=== PATIENT | female | born 1990 | race American Indian/Alaskan Native ===

== ENCOUNTER 2016-10-04 18:34 | Emergency (ER) | payer MEDICAID ==
[2016-10-04 18:35] VITALS: BMI 34.6
[2016-10-04 18:59] VITALS: O2SAT 100
[2016-10-04] MEDS ORDERED: Sodium Chloride 0.9% 1,000 ML IV ONE (19:20)
[2016-10-04 19:26] LABS: BASO % 0.4 % (0.0-2.0); EOS # 0.1 K/uL (0.0-0.7); HEMATOCRIT 36.9 % (34.0-47.0); LYMPH # 2.1 K/uL (1.0-4.3); LYMPH % 27.9 % (20.0-40.0); MEAN CORPUSCULAR HEMOGLOBIN 25.7 pg (27.0-31.0); MEAN CORPUSCULAR HGB CONC 31.8 g/dL (33.0-37.0); MEAN PLATELET VOLUME 8.6 fL (7.2-11.7); MONO # 0.6 K/uL (0.0-0.8); MONO % 8.3 % (0.0-10.0); NRBC % 0.1 % (0.0-2.0); RED CELL DISTRIBUTION WIDTH 15.7 % (11.5-14.5); WHITE BLOOD COUNT 7.4 K/uL (4.8-10.8)
[2016-10-04] MEDS ORDERED: Sodium Chloride 0.9% 1,000 ML ONE (19:28)
[2016-10-04 19:29] LABS: MEAN CELL VOLUME 80.6 fL (81.0-99.0)
[2016-10-04 19:42] LABS: CHLORIDE 100 mmol/L (98-107); POTASSIUM 4.1 mmol/L (3.6-5.2); SODIUM 136 mmol/L (132-148)
[2016-10-04 19:44] LABS: ALB/GLOB RATIO 1.9 (1.0-2.1); AST/SGOT 31 U/L (14-36); BILIRUBIN,TOTAL 0.6 mg/dL (0.2-1.3); CARBON DIOXIDE 23 mmol/L (22-30); GFR AFRICAN-AMERICAN > 60; TOTAL PROTEIN 7.3 g/dL (6.3-8.3)
[2016-10-04 19:45] LABS: ALKALINE PHOSPHATASE 51 U/L (38-126); ALT/SGPT 19 U/L (9-52); BLOOD UREA NITROGEN 14 mg/dL (7-17); CALCIUM 8.9 mg/dl (8.6-10.4); GLUCOSE,RANDOM 85 mg/dL (65-105)
[2016-10-04 19:50] LABS: RBC URINE 1 /hpf (0-3); URINE BACTERIA RARE (<OCC); URINE BILIRUBIN NEGATIVE (NEGATIVE); URINE BLOOD NEGATIVE (NEGATIVE); URINE COLOR Yellow (YELLOW); URINE GLUCOSE (UA) NORMAL (Normal); URINE KETONE NEGATIVE (NEGATIVE); URINE LEUKOCYTE ESTERASE NEG Leu/uL (Negative); URINE PROTEIN NEGATIVE (NEGATIVE); URINE UROBILINOGEN NORMAL mg/dL (0.2-1.0); WBC URINE 7 /hpf (0-5)
[2016-10-04 20:16] LABS: THYROID STIMULATING HORMONE 0.33 mIU/L (0.46-4.68)
--- NOTE | 2016-10-04 20:49 | C.PDOC ---
History Of Present Illness The patient, a 26 y/o female, presents to the ED for evaluation after experiencing a syncopal episode earlier today. Patient states she was standing at work when she suddenly began feeling weakness and dizzines. Patient then slowly fell onto the ground. Patient states her syncopal episode was brief and she recovered quickly. Additionally, patient states she began feeling sick around 3 days ago. She reports chest pain, diffuse abdominal pain which then progressed to lower abdominal pain, and multiple episodes of loose stools. She also reports intermittent headaches. Patient notes she feels like her throat might be closing and has been having difficulty with swallowing. She denies fever, chills, head injury, shortness of breath, nausea, vomiting, extremity numbness/weakness. Time Seen by Provider: 10/04/16 19:05 Chief Complaint (Nursing): Chest Pain History Per: Patient History/Exam Limitations: no limitations Onset/Duration Of Symptoms: Hrs, Intermittent Episodes Current Symptoms Are (Timing): Still Present Location Of Pain/Discomfort: Diffuse Radiation Of Pain To:: None Quality Of Discomfort: "Pain" Associated Symptoms: Other (+loose stools ). 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 Constitutional: Negative for: Fever, Chills Cardiovascular: Positive for: Chest Pain Gastrointestinal: Positive for: Abdominal Pain. Negative for: Nausea, Vomiting Neurological: Positive for: Headache, Other (+syncope) Physical Exam - Physical Exam Appears: Non-toxic, No Acute Distress Skin: Normal Color, Warm, Dry Head: Atraumatic, Normacephalic Eye(s): bilateral: Normal Inspection, PERRL, EOMI Ear(s): Bilateral: Normal Nose: Normal, No Discharge Oral Mucosa: Moist Throat: Normal, No Erythema, No Exudate Neck: Normal ROM, Supple Chest: Symmetrical, No Deformity, No Tenderness Cardiovascular: Rhythm Regular, No Murmur Respiratory: Normal Breath Sounds, No Rales, No Rhonchi, No Wheezing Gastrointestinal/Abdominal: Soft, No Tenderness, No Guarding, No Rebound Back: Normal Inspection, No Vertebral Tenderness, No Paraspinal Tenderness Extremity: Normal ROM, Capillary Refill (less than 2 seconds ) Neurological/Psych: Oriented x3, Normal Speech, Normal Cognition Gait: Steady ED Course And Treatment - Laboratory Results Result Diagrams: 10/04/16 19:24 10/04/16 19:24 ECG: Interpreted By Me, Viewed By Me Interpretation Of ECG: Sinus Rhythm with Sinus Arrhythmia at rate 80bpm. Rate From EC O2 Sat by Pulse Oximetry: 100 (on RA) Pulse Ox Interpretation: Normal Medical Decision Making Medical Decision Making: Plan: * labs * CXR * EKG * Pepcid IV * Toradol IM * IV Fluids * reassess and disposition Progress: labs, CXR, EKG ordered and reviewed. Pt received Pepcid IV, Toradol IV, and IV Fluids. Labs unremarkable except slightly low TSH Results discussed with pt she is feeling better, Plan dc home symptomatic tx Disposition - Disposition Disposition: HOME/ ROUTINE Disposition Time: 20:46 Condition: GOOD Additional Instructions: folllow up with your doctor at [place] Return to the ED for any new or worsening symptoms Prescriptions: Famotidine [Pepcid] 1 tab PO BID #30 tab Loperamide [Imodium] 1 cap PO QID PRN #12 cap PRN Reason: Diarrhea Naproxen [Naprosyn] 1 tab PO BID PRN #25 tab PRN Reason: Pain Instructions: Chest Pain (ED), Acute Abdominal Pain (ED) Forms: Work Excuse - Clinical Impression Clinical Impression: Chest pain, Abdominal pain - Scribe Statement The provider has reviewed the documentation as recorded by the Scribe (Debbie Slater) Provider Attestation: All medical record entries made by the Scribe were at my direction and personally dictated by me. I have reviewed the chart and agree that the record accurately reflects my personal performance of the history, physical exam, medical decision making, and the department course for this patient. I have also personally directed, reviewed, and agree with the discharge instructions and disposition.
[2016-10-04 21:11] VITALS: BP 118/84; PULSE 70; RESP 20; TEMP 99
--- NOTE | 2016-10-05 08:16 | RAD ---
HISTORY: Abdominal pain COMPARISON: No prior. TECHNIQUE: Chest PA and lateral FINDINGS: LUNGS: No active pulmonary disease. Bibasilar breast and nipple shadows. PLEURA: No significant pleural effusion identified. No pneumothorax apparent. CARDIOVASCULAR: Normal. OSSEOUS STRUCTURES: No significant abnormalities. VISUALIZED UPPER ABDOMEN: Normal. OTHER FINDINGS: None. IMPRESSION: No active disease.
--- NOTE | 2016-10-08 11:55 | CARD ---
APPROVED REPORT EKG Measurement Heart [id number] <Conclusion> Normal sinus rhythm with sinus arrhythmia Normal ECG
== END 2016-10-04 21:10 | disposition home or self-care (01) ==
LOC: C.ER 18:34
DX: R07.9 Chest pain, unspecified (principal); R10.9 Unspecified abdominal pain
CPT/HCPCS: 71020; 80053; 81001; 83690; 84443; 84703; 85025; 96361; 96374; 96375; 99285; J1885; J7040

== ENCOUNTER 2016-10-31 19:39 | Emergency (ER) | payer SELFPAY ==
[2016-10-31 19:39] VITALS: BMI 34.6
--- NOTE | 2016-10-31 21:39 | C.PDOC ---
History Of Present Illness A 26 y/o F with a Hx of asthma, c/o body aches and headache since this morning and cough since yesterday. Pt took no medications for symptoms. Denies sore throat, fever, chills, nausea, vomiting, abdominal pain, ear pain, dizziness, or any other complaints. Time Seen by Provider: 10/31/16 20:35 Chief Complaint (Nursing): Cough, Cold, Congestion History Per: Patient History/Exam Limitations: no limitations Onset/Duration Of Symptoms: Hrs Current Symptoms Are (Timing): Still Present Location Of Pain: Diffuse Myalgias, Headache Sick Contacts (Context): None Associated Symptoms: Cough. denies: Fever, Chills, Sore Throat, Neck Pain Ear Symptoms: Bilateral: None Severity: Mild Recent travel outside of the [place]: No Additional History Per: Patient Past Medical History Reviewed: Historical Data, Nursing Documentation, Vital Signs Vital Signs: Last Vital Signs Temp 98.6 F 10/31/16 21:48 Pulse 78 10/31/16 21:48 Resp 18 10/31/16 21:48 BP 130/80 10/31/16 21:48 Pulse Ox 98 10/31/16 21:48 - Medical History PMH: Asthma, Migraine - [facility] Procedures MANUAL ASSIST DELIV NEC (11/14/14) MEDICAL INDUCTION LABOR (11/14/14) REPAIR OB LACERATION NEC (11/14/14) Family History: States: Unknown Family Hx - Social History Hx Tobacco Use: No Hx Alcohol Use: Yes Hx Substance Use: No - Immunization History Hx Tetanus Toxoid Vaccination: No Hx Influenza Vaccination: No Hx Pneumococcal Vaccination: No Review Of Systems Except As Marked, All Systems Reviewed And Found Negative. Constitutional: Positive for: Other (Body aches). Negative for: Fever, Chills ENT: Negative for: Ear Pain Respiratory: Positive for: Cough Gastrointestinal: Negative for: Nausea, Vomiting, Abdominal Pain Neurological: Positive for: Headache. Negative for: Dizziness Physical Exam - Physical Exam Appears: Non-toxic, No Acute Distress Skin: Warm, Dry Head: Atraumatic, Normacephalic Eye(s): bilateral: Normal Inspection Nose: Normal, No Discharge Oral Mucosa: Moist Throat: Normal, No Erythema, No Exudate Neck: Trachea Midline, No Paracervical Tenderness, Supple Cardiovascular: Rhythm Regular Respiratory: Normal Breath Sounds, No Accessory Muscle Use, No Rales, No Rhonchi , No Stridor, No Wheezing Gastrointestinal/Abdominal: Soft, No Tenderness Neurological/Psych: Oriented x3, Normal Speech, Normal Cognition ED Course And Treatment O2 Sat by Pulse Oximetry: 99 (RA) Pulse Ox Interpretation: Normal Progress Note: Impression: A 26 y/o F c/po body aches and headache since this morning and cough since yesterday. Plans: Motrin, Reassess. Pt is in no acute distress at this time and is improving with the symptoms. Pt was advised to follow up with her PMD if symptoms continues to persist. Disposition Counseled Patient/Family Regarding: Diagnosis, Need For Followup, Rx Given - Disposition Disposition: HOME/ ROUTINE Disposition Time: 21:35 Condition: STABLE Additional Instructions: Increase PO fluids Take meds as directed Please follow up with PMD Prescriptions: Benzonatate [Tessalon Perles] 100 mg PO TID #20 sgl Cetirizine HCl [Zyrtec] 10 mg PO DAILY #20 capsule Ibuprofen [Motrin] 600 mg PO Q6H #30 tab Instructions: Upper Respiratory Infection (ED) Forms: Work Excuse - Clinical Impression Clinical Impression: Upper respiratory infection - Scribe Statement The provider has reviewed the documentation as recorded by the Scribe Nacho grace All medical record entries made by the Scribe were at my direction and personally dictated by me. I have reviewed the chart and agree that the record accurately reflects my personal performance of the history, physical exam, medical decision making, and the department course for this patient. I have also personally directed, reviewed, and agree with the discharge instructions and disposition.
[2016-10-31 21:48] VITALS: BP 130/80; PULSE 78; RESP 18; TEMP 98.6
[2016-10-31 21:51] VITALS: O2SAT 99
== END 2016-10-31 21:56 | disposition home or self-care (01) ==
LOC: C.ER 19:39
DX: J06.9 Acute upper respiratory infection, unspecified (principal)

== ENCOUNTER 2016-11-15 15:11 | Emergency (ER) | payer OTHER ==
[2016-11-15 15:11] VITALS: BMI 34.6
[2016-11-15 15:15] VITALS: BP 132/85; PULSE 91; TEMP 98.6; O2SAT 100
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
[2016-11-15 16:53] VITALS: RESP 18
--- NOTE | 2016-11-15 17:15 | RAD ---
PROCEDURE: Left Hand Radiographs. Three views left hand with cone-down view of the left thumb performed HISTORY: injury COMPARISON: None. FINDINGS: BONES: Normal. No fracture. JOINTS: Small osteophyte formation seen arising from the dorsal aspect base of the distal phalanx 2nd finger. . SOFT TISSUES: Normal. OTHER FINDINGS: None. IMPRESSION: No evidence of acute displaced fracture nor dislocation. If symptoms persist or occult fracture suspected clinically recommend repeat radiographs in 5-10 days as most fractures should become radiographically evident in this timeframe. Mild degenerative changes DIP joint 2nd finger as above
== END 2016-11-15 17:16 | disposition home or self-care (01) ==
LOC: C.ER 15:11
DX: S60.222A Contusion of left hand, initial encounter (principal); Y04.0XXA Assault by unarmed brawl or fight, initial encounter

== ENCOUNTER 2017-07-10 20:48 | Emergency (ER) | payer BC ==
[2017-07-10 20:48] VITALS: BMI 34.6
[2017-07-10 21:04] VITALS: O2SAT 98
--- NOTE | 2017-07-10 21:45 | C.PDOC ---
History Of Present Illness 27 year old female presents to the ER with a complaint of epigastric and LUQ abdominal pain since this morning. Denies fever, nausea, vomiting, or other complaints. Time Seen by Provider: 07/10/17 21:41 Chief Complaint (Nursing): Abdominal Pain History Per: Patient History/Exam Limitations: no limitations Onset/Duration Of Symptoms: Hrs Current Symptoms Are (Timing): Still Present Location Of Pain/Discomfort: Epigastric, LUQ Radiation Of Pain To:: None Quality Of Discomfort: Unable To Describe Associated Symptoms: denies: Fever, Nausea, Vomiting Exacerbating Factors: None Alleviating Factors: None Recent travel outside of the [place]: No Abnormal Vaginal Bleeding: No Past Medical History Reviewed: Historical Data, Nursing Documentation, Vital Signs Vital Signs: Last Vital Signs Temp 98.2 F 07/10/17 21:02 Pulse 84 07/10/17 21:02 Resp 16 07/10/17 21:02 BP 128/85 07/10/17 21:02 Pulse Ox 98 07/10/17 22:00 - Medical History PMH: Asthma, Migraine - [facility] Procedures MANUAL ASSIST DELIV NEC (11/14/14) MEDICAL INDUCTION LABOR (11/14/14) REPAIR OB LACERATION NEC (11/14/14) Family History: States: Unknown Family Hx - Social History Hx Tobacco Use: No Hx Alcohol Use: Yes Hx Substance Use: No - Immunization History Hx Tetanus Toxoid Vaccination: No Hx Influenza Vaccination: No Hx Pneumococcal Vaccination: No Review Of Systems Constitutional: Negative for: Fever, Chills Cardiovascular: Negative for: Chest Pain, Palpitations Respiratory: Negative for: Cough, Shortness of Breath Gastrointestinal: Positive for: Abdominal Pain. Negative for: Nausea, Vomiting Physical Exam - Physical Exam Appears: Non-toxic Skin: Normal Color, Warm, Dry Head: Atraumatic, Normacephalic Eye(s): bilateral: Normal Inspection Oral Mucosa: Moist Chest: Symmetrical, No Tenderness Cardiovascular: Rhythm Regular Respiratory: Normal Breath Sounds, No Rales, No Rhonchi, No Wheezing Gastrointestinal/Abdominal: Soft, Tenderness (Epigastric, LUQ), No Guarding, No Rebound Neurological/Psych: Oriented x3, Normal Speech ED Course And Treatment - Laboratory Results Result Diagrams: 07/10/17 22:22 07/10/17 22:22 O2 Sat by Pulse Oximetry: 98 (Room air) Pulse Ox Interpretation: Normal Medical Decision Making Medical Decision Making: suspect gastritis pud r/o pancreatitis- bedside us neg for cholecystitis. Plan: * Blood work * Urinalysis * Protonix * Zofran * IV fluids * * 1100: pt reassessed symptoms improved. additioanl maalox ordered. pt offered further observeration in er until complete resolution. pt decliens asking for dc . adivse outpt fu and return precautions Disposition - Disposition Referrals: [facility] [Outside] [facility] [Outside] Rod Mora MD [Staff Provider] - Disposition: HOME/ ROUTINE Disposition Time: 23:10 Condition: STABLE Additional Instructions: please follow up with your doctor. return to er with worsening symptoms or concerns. please see specialist Prescriptions: Famotidine [Pepcid] 20 mg PO DAILY #20 tab Instructions: Acute Abdomen (Belly Pain), Adult (DC) Forms: [employer] (Greenlandic) - Clinical Impression Clinical Impression: Abdominal pain, Abdominal pain - Scribe Statement The provider has reviewed the documentation as recorded by the Scribe Alex Machado All medical record entries made by the Scribe were at my direction and personally dictated by me. I have reviewed the chart and agree that the record accurately reflects my personal performance of the history, physical exam, medical decision making, and the department course for this patient. I have also personally directed, reviewed, and agree with the discharge instructions and disposition.
[2017-07-10] MEDS ORDERED: Sodium Chloride 0.9% 1,000 ML IV ONE (21:54)
[2017-07-10] MEDS ORDERED: Sodium Chloride 0.9% 1,000 ML ONE (22:12)
[2017-07-10 22:25] LABS: BASO % 0.6 % (0.0-2.0); EOS # 0.2 K/uL (0.0-0.7); EOS % 2.7 % (0.0-4.0); HEMOGLOBIN 11.3 g/dL (11.0-16.0); LYMPH # 2.3 K/uL (1.0-4.3); LYMPH % 41.4 % (20.0-40.0); MEAN CELL VOLUME 80.9 fL (81.0-99.0); MEAN CORPUSCULAR HEMOGLOBIN 26.1 pg (27.0-31.0); MEAN CORPUSCULAR HGB CONC 32.3 g/dL (33.0-37.0); MEAN PLATELET VOLUME 8.5 fL (7.2-11.7); MONO # 0.5 K/uL (0.0-0.8); MONO % 9.3 % (0.0-10.0); NEUT # 2.6 K/uL (1.8-7.0); RBC 4.33 Mil/uL (3.80-5.20); RED CELL DISTRIBUTION WIDTH 16.9 % (11.5-14.5); WHITE BLOOD COUNT 5.6 K/uL (4.8-10.8)
[2017-07-10 22:28] LABS: HCG,QUALITATIVE URINE NEGATIVE (NEGATIVE)
[2017-07-10 22:31] LABS: SQUAMOUS EPITHIAL 2 /hpf (0-5); URINE BILIRUBIN NEGATIVE (NEGATIVE); URINE BLOOD NEGATIVE (NEGATIVE); URINE CLARITY Hazy (Clear); URINE COLOR Yellow (YELLOW); URINE GLUCOSE (UA) NORMAL (Normal); URINE LEUKOCYTE ESTERASE TRACE Leu/uL (Negative); URINE PROTEIN NEGATIVE (NEGATIVE); URINE UROBILINOGEN NORMAL mg/dL (0.2-1.0)
[2017-07-10 22:35] LABS: INR 1.1; PROTHROMBIN TIME 12.4 SECONDS (9.7-12.2)
[2017-07-10 22:37] LABS: ALB/GLOB RATIO 1.3 (1.0-2.1); ALBUMIN 4.3 g/dL (3.5-5.0); ALT/SGPT 26 U/L (9-52); AST/SGOT 23 U/L (14-36); BLOOD UREA NITROGEN 12 mg/dL (7-17); CALCIUM 9.2 mg/dl (8.6-10.4); GFR AFRICAN-AMERICAN > 60; GFR NON-AFRICAN AMERICAN > 60; LIPASE 56 U/L (23-300)
[2017-07-10] MEDS ORDERED: Aluminum Hydroxide/Magnesium Hydroxide Susp (30 mL) PO STA (22:54)
[2017-07-10] MEDS ORDERED: Alum-Mag Hydrox-Simethicone Susp (30 mL) ONE (22:59)
[2017-07-10 23:28] VITALS: BP 130/88; PULSE 76; RESP 18; TEMP 97.6
== END 2017-07-10 23:29 | disposition home or self-care (01) ==
LOC: C.ER 20:48
DX: R10.9 Unspecified abdominal pain (principal)
CPT/HCPCS: 80053; 81001; 83690; 84703; 85025; 85610; 85730; 96361; 96374; 96375; 99284; C9113; J2405; J7040